=== PATIENT | male | born 1935 | race Caucasian/White ===

== ENCOUNTER 2019-02-25 06:21 | Emergency (ER) | payer MEDICARE, MEDICAID ==
[~2019-02-25] VITALS: Ht 170.2 cm; Wt 71.9 kg
[2019-02-25] MEDS ORDERED: IRON325 PO (06:35)
[2019-02-25] MEDS ORDERED: ASPIR 8181 MG PO (06:35)
[2019-02-25] MEDS ORDERED: PACERONE 200 M200 M1 PO (06:35)
[2019-02-25] MEDS ORDERED: PANTOPRAZOLE SO40 M1 PO (06:36)
[2019-02-25] MEDS ORDERED: MIDODRINE HCL 55 M1 PO (06:36)
[2019-02-25] MEDS ORDERED: FLOMAX0.4 MG PO (06:37)
[2019-02-25] MEDS ORDERED: PAROXETINE HCL20 MG PO (06:37)
[2019-02-25] MEDS ORDERED: VITAMIN D3400 UNIT PO (06:38)
[2019-02-25] MEDS ORDERED: NITROGLYCERIN0.4 MG SUBLING (06:38)
[2019-02-25] MEDS ORDERED: VITAMIN D5000 UNIT PO (06:38)
[2019-02-25] MEDS ORDERED: ONDANSETRON HCL4 M2 PO (06:39)
[2019-02-25] MEDS ORDERED: VENTOLIN HFA 1818 GM INH (06:39)
[2019-02-25 07:41] LABS: URINE BILIRUBIN NEGATIVE (Negative); URINE BLOOD NEGATIVE (Negative); URINE CLARITY CLEAR; URINE COLOR YELLOW; URINE GLUCOSE-RANDOM NEGATIVE (Negative); URINE KETONES NEGATIVE (Negative); URINE LEUKOCYTES-REFLEX NEGATIVE (Negative); URINE NITRITE-REFLEX NEGATIVE (Negative); URINE PROTEIN NEGATIVE (Negative); URINE SPECIFIC GRAVITY 1.015 (1.005-1.030)
[2019-02-25 08:18] LABS: ABSOLUTE BASOPHILS 0.1 thou/uL (0.0-0.2); ABSOLUTE EOSINOPHILS 0.1 thou/uL (0.0-0.7); ABSOLUTE LYMPHOCYTES 0.8 thou/uL (0.8-5.3); ABSOLUTE MONOCYTES 0.3 thou/uL (0.0-1.2); ABSOLUTE NEUTROPHILS 3.5 thou/uL (1.6-8.1); BASOPHILS 1.2 %; EOSINOPHILS 2.7 %; HEMATOCRIT 24.6 % (42.0-52.0); HEMOGLOBIN 8.7 gm/dL (14.0-18.0); LYMPHOCYTES 17.5 %; MCH 28.2 pg (26.0-34.0); MCHC 35.4 g/dL (28.0-37.0); MCV 79.7 fL (80.0-100.0); MONOCYTES 6.2 %; MPV 7.7 fl. (7.2-11.1); NUCLEATED RBCS 0 /100WBC; PLATELET COUNT* 208 thou/uL (150-400); POLYS 72.4 %; RBC 3.08 mil/uL (4.50-6.00); RDW-CV 15.1 % (10.5-14.5); WBC 4.8 thou/uL (4.0-11.0)
[2019-02-25 08:25] LABS: ANION GAP 5 mmol/L (7-16); BUN 13 mg/dL (7-18); CALCIUM 7.7 mg/dL (8.5-10.1); CHLORIDE 94 mmol/L (98-107); CO2 27 mmol/L (21-32); GLUCOSE 97 mg/dL (70-99); POTASSIUM 4.3 mmol/L (3.5-5.1); SODIUM 126 mmol/L (136-145)
[2019-02-25 08:28] LABS: APTT 34.2 Seconds (25.0-31.3); PROTIME 10.7 Seconds (9.20-11.50)
[2019-02-25 08:34] LABS: ALBUMIN 2.6 g/dL (3.4-5.0); ALKALINE PHOSPHATASE 37 U/L (46-116); SGOT 32 U/L (15-37); SGPT 22 U/L (30-65); TOTAL BILIRUBIN 0.4 mg/dL (<0.1-1.0); TOTAL PROTEIN 6.3 g/dL (6.4-8.2); TROPONIN-I LEVEL <0.06 ng/mL (<0.06)
[2019-02-25 10:36] VITALS: BP 146/58
--- NOTE | 2019-02-25 11:19 | EKG ---
[place] [address] ELECTROCARDIOGRAM REPORT Name: SILVESTRE LONDONO [id number] Admission: 02/25/19 Attend Phys: Discharge: 02/25/19 Date of : 35 Report #: [id number] THIS REPORT FOR: //name// [facility] ED Test Date: 2019-02-25 Test Time: 07:55:11 Pat Name: SILVESRTE LONDONO Department: Room: Gender: M Bark Spudder: [facility] : 1935 Requested By: Asif Ernst Order Number: [id number] MD: Jacobo Dunbar Measurements Intervals [place] Rate: 55 P: GA: QRS: -28 QRSD: 123 T: 47 QT: 501 QTc: 480 Interpretive Statements sinus bradycardia with first degree av block Nonspecific intraventricular conduction delay Baseline wander in lead(s) V2 No previous ECG available for comparison Electronically Signed On 02-25-2019 11:19:45 CDT by Jacobo Dunbar [email or web address] <ELECTRONICALLY SIGNED> By: Jacobo Dunbar MD, [facility] 02/25/19 [id number] [id number] Jacobo Dunbar MD, FACC /EPI
== END 2019-02-25 10:37 | disposition home or self-care (01) ==
LOC: M.ERS 06:21
PROVIDERS: Family Medicine
DX: S50.312A Abrasion of left elbow, initial encounter (principal); R07.81 Pleurodynia; J44.9 Chronic obstructive pulmonary disease, unspecified; M47.892 Other spondylosis, cervical region; Z88.8 Allergy status to other drugs, medicaments and biological substances; Z88.0 Allergy status to penicillin; Z88.2 Allergy status to sulfonamides; Z96.652 Presence of left artificial knee joint; W01.0XXA Fall on same level from slipping, tripping and stumbling without subsequent striking against object, initial encounter; Y92.002 Bathroom of unspecified non-institutional (private) residence as the place of occurrence of the external cause; Y93.89 Activity, other specified; Y99.8 Other external cause status

== ENCOUNTER 2019-04-11 21:54 | Inpatient (IN) | payer MEDICARE, MEDICAID ==
[~2019-04-11] VITALS: Ht 170.2 cm; Wt 70.8 kg
--- NOTE | ~2019-04-11 | CON ---
[address] [address] CONSULTATION Name: SILVESTRE LONDONO Room: [address] IN .R.#: [id number] Admission: 04/11/19 Attend Phys: Jose Casey MD Discharge: Date of : 35 Report #: [id number] THIS REPORT FOR: //name// CC: Jose Sorto MD DICTATED BY: Linda Lozada [facility] DATE OF SERVICE: 04/13/2019 Please note at the time of this dictation, the patient was seen and physically examined by myself. REASON FOR CONSULTATION: Difficulty swallowing and abdominal pain. HISTORY OF PRESENT ILLNESS: This is an 84-year-old male who was sent to the hospital for poor oral intake and abnormal labs. Apparently, his sodium was low and he has been anemic. In talking with the patient and the daughter, she states in 09/2018 he fell and broke his hip. He went home for about a week and fell again reopening the area and he was in an apartment in [place], [place] when he did this the second time, then they moved him appeared to [facility] where he has been since. He had an episode of some breathing issues and had effusions that he was admitted to [facility] for a couple of months ago and was discharged both times. He has been in the hospital, he has received blood, but no workup has been done. Everyone is telling them that he is anemic, that is the first time he has ever noted that he has ever been anemic that he can recall and the same with the niece, Jenifer, who was with him. The patient takes no anticoagulant therapy and denies taking any NSAIDs while he has been at the shelter. The patient states his difficulty in swallowing is mainly with solids, which has been occurring for some time and he notices a lot with bread and it has progressively gotten worse. He denies any issues with liquids at this time. The patient states he did have an EGD and colonoscopy many years ago and it was done in [facility]. We will try to obtain labs from 2018 to see if he was anemic at that time as well as any endoscopy reports with path. The patient also states that when he eats, he has some lower abdominal discomfort. He states his bowels move once or twice every day and he does not have any issues with constipation. ALLERGIES: PENICILLIN AND SULFA. MEDICATIONS FROM HOME: Amiodarone, aspirin, iron, midodrine, pantoprazole, Paxil, Flomax, vitamin B, vitamin D, Nitrostat, Zofran, Ventolin, Colace, ferrous gluconate, Lasix, potassium and Lexapro. PAST MEDICAL HISTORY: Hyponatremia; has a [place] [address] CONSULTATION Name: SILVESTRE LONDONO Room: [address] IN ..#: [id number] Admission: 04/11/19 Attend Phys: Jose Casey MD Discharge: Date of : 35 Report #: [id number] with stents; atrial fibrillation, no anticoagulant; and some COPD. PAST SURGICAL HISTORY: Right rotator cuff, left inguinal hernia, vestibular operation, left testicle 20 years ago. FAMILY HISTORY: Significant on his side of the family, sisters with breast and ovarian cancer and a niece with breast cancer. SOCIAL HISTORY: , former smoker. Denies any alcohol or illegal drug use at this time. REVIEW OF SYSTEMS: Twelve-point review of systems is essentially negative except for what is mentioned in the HPI. PHYSICAL EXAMINATION: VITAL SIGNS: Temperature 36.7, pulse 68, respirations 18 and blood pressure 102/49. HEART: Regular rate and rhythm. LUNGS: Diminished, but clear. ABDOMEN: Soft, positive bowel sounds in all 4 quadrants with some slight tenderness in the upper and lower quadrant area. LABORATORY DATA: Sodium 127 and potassium 4.1. Hemoglobin is 7.4, white count is 3.6 and platelets 196. GFR is 80. Iron is 18, TIBC 148, percentage sat is 12. B12 is 544. Abdominal x-ray showed possible ileus. Chest x-ray is showing right small pleural effusion. IMPRESSION: 1. Dysphagia. 2. Abdominal pain. 3. Anemia, no overt bleeding noted. 4. Questionable ileus. 5. Hyponatremia. 6. Family history of breast and ovarian cancer. PLAN: 1. Recheck abdominal x-ray. 2. Await improvement of sodium before EGD with possible dilatation can be performed. 3. We will obtain labs and any endoscopy studies from [facility] from Dr. Luis Carcamo for comparison to see when he became anemic and when his last endoscopy studies were done if available. 4. If above x-ray shows no ileus, allow him to have a full liquid diet. 5. Further recommendations to be made once the above have been noted and he will likely need a colonoscopy as well to further investigate his anemia if no [place] [address] CONSULTATION Name: SILVESTRE LONDONO Room: [address]#: [id number] Admission: 04/11/19 Attend Phys: Jose Casey MD Discharge: Date of : 35 Report #: [id number] Thank you for allowing us to participate in this patient's care. Please do not hesitate to call with any questions in regard to this consult. By: [id number] Hale MD /lemuel
[~2019-04-11 21:54] MED LIST: ASPIR 8181 MG PO; FLOMAX0.4 MG PO; IRON325 PO; MIDODRINE HCL 55 M1 PO; NITROGLYCERIN0.4 MG SUBLING; ONDANSETRON HCL4 M2 PO; PACERONE 200 M200 M1 PO; PANTOPRAZOLE SO40 M1 PO; PAROXETINE HCL20 MG PO; VENTOLIN HFA 1818 GM INH; VITAMIN D3400 UNIT PO; VITAMIN D5000 UNIT PO
[2019-04-11 21:57] VITALS: BP 113/53
[2019-04-11] MEDS ORDERED: COLACE100 MG PO (22:03)
[2019-04-11] MEDS ORDERED: LEXAPRO 10 MG T10 M2 PO (22:04)
[2019-04-11] MEDS ORDERED: POTASSIUM20 PO (22:04)
[2019-04-11] MEDS ORDERED: LASIX 20 MG TAB20 MG PO (22:04)
[2019-04-11] MEDS ORDERED: FERROUS GLUCON324 M3 PO (22:04)
[2019-04-11 22:34] LABS: ABSOLUTE LYMPHOCYTES 0.6 thou/uL (0.8-5.3); ABSOLUTE MONOCYTES 0.3 thou/uL (0.0-1.2); ABSOLUTE NEUTROPHILS 2.8 thou/uL (1.6-8.1); BASOPHILS 0.8 %; HEMATOCRIT 25.5 % (42.0-52.0); HEMOGLOBIN 8.6 gm/dL (14.0-18.0); LYMPHOCYTES 16.4 %; MCH 25.9 pg (26.0-34.0); MCHC 33.6 g/dL (28.0-37.0); MCV 77.1 fL (80.0-100.0); MONOCYTES 9.1 %; MPV 7.5 fl. (7.2-11.1); NUCLEATED RBCS 0 /100WBC; PLATELET COUNT* 255 thou/uL (150-400); POLYS 72.7 %; RBC 3.31 mil/uL (4.50-6.00); RDW-CV 16.9 % (10.5-14.5); WBC 3.8 thou/uL (4.0-11.0)
[2019-04-11 22:36] LABS: APTT 37.6 Seconds (25.0-31.3); PROTIME 10.6 Seconds (9.20-11.50)
[2019-04-11 22:39] LABS: ANION GAP 6 mmol/L (7-16); BUN 14 mg/dL (7-18); CALCIUM 8.1 mg/dL (8.5-10.1); CHLORIDE 90 mmol/L (98-107); CO2 25 mmol/L (21-32); GLUCOSE 104 mg/dL (70-99); POTASSIUM 4.4 mmol/L (3.5-5.1); SODIUM 121 mmol/L (136-145)
[2019-04-11 22:49] LABS: ALBUMIN 2.8 g/dL (3.4-5.0); ALKALINE PHOSPHATASE 55 U/L (46-116); NT-PRO BRAIN NAT PEPTIDE 1004 pg/mL (<300); SGOT 74 U/L (15-37); SGPT 44 U/L (30-65); TOTAL BILIRUBIN 0.5 mg/dL (<0.1-1.0); TOTAL PROTEIN 6.4 g/dL (6.4-8.2); TROPONIN-I LEVEL <0.06 ng/mL (<0.06)
[2019-04-12] VITALS (7 sets, daily range): BP systolic 101–155; BP diastolic 43–67
--- NOTE | 2019-04-12 06:51 | NUR ---
SLEPT WELL TONIGHT. REMINDER TO TURN IN BED. INCONT OF URINE. TELEMETRY SHOWING SB TO SR. NO CHANGE IN ASSESSMENT. HS GOALS OF REST AND SAFETY ACHIEVED. HOURLY ROUNDING OBSERVED.
--- NOTE | 2019-04-12 09:18 | NUR ---
ASSUMED CARE OF PT THIS AM AROUND 0715- ELECTRICAL APPRENTICE IN PLACE ORDERED, TRACING SB/BBB- UPON ASSESSMENT PT NOTED TO BE RESTING IN BED, WATCHING TV- PT A&O X4, [place] CONTINENT VS INCONTINET OF BOWEL AND BLADDER- MAX ASSIST X2 WITH TRANSFERS- DIMINISHED LUNG SOUNDS NOTED, RESP EVEN AND UN-LABORED- VSS, O2 SAT 96% ON RA- ABD SOFT/ROUND/NON-TENDER, BS X4 QUADS- LAST BM REPORTED 04/11/19- NEW 2O GAUGE IV PLACED TO LEFT FA THIS AM, IVF INFUSSING PRESCIBED- FAIR PO INTAKE NOTED THIS AM WITH BREAKFAST- DRESSING TO RIGHT FOREARM IN PLACE WITH NO VISIBLE DRAINGE NOTED- TRACE BLE EDEMA NOTED- PT DENIES ANY C/O PAIN/DISCOMFORT AT THIS TIME- CALL LIGHT AND PERSONAL BELONGINGS WITH IN REACH- HOURLY ROUNDS IN PLACE R/T SAFETY/NEEDS- ALL NEEDS MET AT THIS TIME-WCTM
--- NOTE | 2019-04-12 11:00 | EKG ---
[place] [address] ELECTROCARDIOGRAM REPORT Name: SILVESTRE LONDONO Room: [address] ADM IN M.R.#: [id number] Admission: 04/11/19 Attend Phys: Jose Casey MD Discharge: Date of : 35 Report #: [id number] THIS REPORT FOR: //name// [facility] ED Test Date: 2019-04-11 Test Time: 22:02:33 Pat Name: SILVESTRE LONDONO Department: Room: [facility] Gender: M Intervention Nurse: MD : 1935 Requested By: Asif Ernst Order Number: [id number] MD: Iftikhar Sharpe Measurements Intervals [place] Rate: 55 P: -37 MN: 222 QRS: -39 QRSD: 131 T: 46 QT: 478 QTc: 458 Interpretive Statements Sinus rhythm Borderline prolonged MN interval Nonspecific IVCD with LAD Compared to ECG 02/25/2019 07:55:11 Sinus bradycardia no longer present Electronically Signed On 04-12-2019 11:00:41 CDT by Iftikhar Sharpe [email or web address] <ELECTRONICALLY SIGNED> By: Iftikhar Sharpe MD, [facility] 04/12/19 1100 01 01 Iftikhar Sharpe MD, [facility] /EPI
--- NOTE | 2019-04-12 12:00 | NUR ---
MET WITH PT AND HIS AGUSTIN/ARAVIND. PT LIVES IN LTC AT [facility]. HE USES WALKER AND W/C. ARAVIND REPORTS PT NOT EATING WELL THERE, PT C/O FOOD IS 'COLD'. ARAVIND PLANS TO INVESTIGATE AND HELP PT SET SOME GOALS AT [place]. PLAN IS FOR HIM TO RETURN THERE AT [place]. CALLED AND SPOKE WITH [facility], THEY WILL ACCEPT BACK. MADE HER AWARE PT HAD C/O ABOUT FOOD. WILL FOLLOW
--- NOTE | 2019-04-12 12:57 | 2DMMODE ---
[place] [address] 2 D/M-MODE ECHOCARDIOGRAM Name: SILVESTRE LONDONO Room: [address] IN [facility]#: [id number] Admission: 04/11/19 Attend Phys: Jose Casey, Discharge: Date of : 35 Date of Service: 04/12/19 1256 Report #: [id number] THIS REPORT FOR: //name// APPROVED REPORT Study performed: 04/12/2019 10:23:28 EXAM: Comprehensive 2D, Doppler, and color-flow Echocardiogram Patient Location: In-Patient Room #: [facility] Status: routine BSA: 1.73 HR: 61 bpm BP: 110/56 mmHg Rhythm: NSR Other Information Study Quality: Poor Technically limited study due to off axis imaging, no good parasternal views. Indications Congestive Heart Failure 2D Dimensions IVSd: 11.14 (7-11mm) LVOT Diam: 19.47 (18-24mm) LVDd: 46.91 mm PWd: 9.74 (7-11mm) LVDs: 29.47 (25-40mm) Aortic Root: 34.44 mm Aortic Valve AoV Peak Xu.: 1.44 m/s AO Peak Gr.: 8.28 mmHg LVOT Max P.93 mmHg AO Mean Gr.: 4.64 mmHg LVOT Mean P.45 mmHg LVOT Max V: 0.86 m/s AO V2 VTI: 27.79 cm LVOT Mean V: 0.56 m/s BETSY (VTI): 1.89 cm2 LVOT V1 VTI: 17.65 cm Mitral Valve E/A Ratio: 2.48 MV Decel. Time: 215.48 ms MV E Max Xu.: 0.88 m/s MV PHT: 62.49 ms MVA (PHT): 3.52 cm2 [place] [address] 2 D/M-MODE ECHOCARDIOGRAM Name: SILVESTRE LONDONO Room: [address] IN [facility].#: [id number] Admission: 04/11/19 Attend Phys: Jose Casey, Discharge: Date of : 35 Date of Service: 04/12/19 1256 Report #: [id number] Tricuspid Valve RAP Estimate: 5.00 mmHg TR Peak Gr.: 26.35 mmHg RVSP: 31.00 mmHg PA Pressure: 31.00 mmHg Left Ventricle The left ventricle is normal size. There is normal LV segmental wall motion. There is normal left ventricular wall thickness. Left ventricular systolic function is grossly normal. LVEF is 55-60%. This study is not technically sufficient to allow evaluation of the LV diastolic function. Right Ventricle The right ventricle is normal size. The right ventricular systolic function is normal. Atria The left atrium size is normal. The right atrium size is normal. Aortic Valve Mild aortic valve sclerosis. No aortic regurgitation is present. Mild aortic stenosis. Mitral Valve There is mitral annular calcification. There is no mitral valve regurgitation noted. No evidence of mitral valve stenosis. Tricuspid Valve The tricuspid valve is normal in structure. Trace tricuspid regurgitation. Mild pulmonary hypertension. Pulmonic Valve Pulmonic valve is not well visualized. There is no pulmonic valvular regurgitation. Great Vessels The aortic root is normal in size. IVC is not well visualized. Pericardium There is no pericardial effusion. <Conclusion> The left ventricle [place] [address] 2 D/M-MODE ECHOCARDIOGRAM Name: SILVESTRE LONDONO Room: [address] IN ..#: [id number] Admission: 04/11/19 Attend Phys: Jose Casey, Discharge: Date of : 35 Date of Service: 04/12/19 1256 Report #: [id number] There is normal left ventricular wall thickness. Left ventricular systolic function is grossly normal. LVEF is 55-60%. Mild aortic valve sclerosis. Mild aortic stenosis. Trace tricuspid regurgitation. Mild pulmonary hypertension. <ELECTRONICALLY SIGNED> By: Iftikhar Sharpe MD, [facility] 04/12/19 1256 1256 1256 Iftikhar Sharpe MD, FACC /INF
--- NOTE | 2019-04-12 16:27 | NUR ---
PT CURRENTLY RESTING IN BED- WIRELESS SALES REPRESENTATIVE IN PLACE ORDERED, TRACING SR WITH 1ST DEGREE/BBB- IV TO LEFT AC INTACT AND SL- FAIR PO INTAKE NOTED THIS SHIFT WITH MEALS- PT DAUGHTER REPORTS C/O ABD PAIN WITH DECREASED PO INTAKE- GI CONSULT TO BE INITIATED PER THIS SHIFT- DRESSING REMAINS INTACT TO RUE- ECHO COMPLETED THIS SHIFT, RESULTS NOTED WITH 55-60% EF- F/R IN PLACE OF 1500- DENIES ANY C/O PAIN/DISCOMFORT AT THIS TIME- ALL NEEDS MET AT THIS TIME-WCTM
[2019-04-13] VITALS: BP 133/56
[2019-04-13 04:00] VITALS: BP 125/56
[2019-04-13 05:45] LABS: ABSOLUTE MONOCYTES 0.4 thou/uL (0.0-1.2); ABSOLUTE NEUTROPHILS 2.1 thou/uL (1.6-8.1); BASOPHILS 0.8 %; EOSINOPHILS 1.3 %; HEMATOCRIT 21.4 % (42.0-52.0); HEMOGLOBIN 7.4 gm/dL (14.0-18.0); LYMPHOCYTES 27.6 %; MCH 26.8 pg (26.0-34.0); MCHC 34.5 g/dL (28.0-37.0); MCV 77.7 fL (80.0-100.0); MONOCYTES 11.9 %; MPV 7.9 fl. (7.2-11.1); NUCLEATED RBCS 0 /100WBC; PLATELET COUNT* 196 thou/uL (150-400); POLYS 58.4 %; RBC 2.75 mil/uL (4.50-6.00); RDW-CV 16.9 % (10.5-14.5); WBC 3.6 thou/uL (4.0-11.0)
[2019-04-13 05:56] LABS: ALBUMIN 2.5 g/dL (3.4-5.0); CALCIUM 7.8 mg/dL (8.5-10.1); CREATININE 0.9 mg/dL (0.6-1.3); POTASSIUM 4.1 mmol/L (3.5-5.1); TOTAL BILIRUBIN 0.3 mg/dL (<0.1-1.0); TOTAL PROTEIN 5.7 g/dL (6.4-8.2)
--- NOTE | 2019-04-13 07:25 | NUR ---
PT CARE ASSUMED AT 1930. SAT MAINTAINED IN RA. PT IS CONFUSED THIS AM. CALL LIGHT WITHIN REACH AND BED IN LOW POSITION. INCONTINENT OF B/B. C/O PAIN, MEDICATION GIVEN PER EMAR. HOURLY ROUNDING DONE FOR PT SAFETY.
[2019-04-13 07:43] VITALS: BP 102/49
--- NOTE | 2019-04-13 08:34 | NUR ---
ASSUMED CARE OF PT THIS AM AROUND 714- CASINO FLOOR WALKER IN PLACE ORDERED, TRACING SB WITH 1ST DEGREE-UPON ASSESSMENT PT NOTED TO BE RESTING IN BED- PT A&O X3 WITH INTERMITENT CONF NOTED- INCONTINENT OF BOWEL AND BLADDER- ASSIST X1 WITH TRANSFERS- Q [address] INDICATED- COURSE LUNG SOUNDS NOTED TO RUL, DIMINISHED IN BASES- RESP EVEN AND UN-LABORED- VSS, O2 SAT 93% ON RA- ABD SOFT/FLAT/NON-TENDER, BS X4 HYPOPACTIVE- PT CURRENTLY NPO FOR GI CONSULT THIS AM- IV NOTED TO LEFT FA INTACT, IVF INFUSSING PRESCRIBED-PT DENIES ANY C/O PAIN/DISCOMFORT AT THIS TIME- CALL LIGHT AND PERSONAL BELONGINGS WITH IN REACH- BED ALARM IN PLACE AND WORKING FOR PT SAFETY- HOURLY ROUNDS IN PLACE R/T SAFETY/NEEDS- ALL NEEDS MET AT THIS TIME-WCTM
[2019-04-13 09:22] LABS: URINE BILIRUBIN NEGATIVE (Negative); URINE BLOOD NEGATIVE (Negative); URINE CLARITY CLEAR; URINE COLOR YELLOW; URINE GLUCOSE-RANDOM NEGATIVE (Negative); URINE KETONES NEGATIVE (Negative); URINE LEUKOCYTES-REFLEX 1+ (Negative); URINE NITRITE-REFLEX NEGATIVE (Negative); URINE PROTEIN NEGATIVE (Negative); URINE SPECIFIC GRAVITY 1.015 (1.005-1.030); URINE UROBILINOGEN 0.2 E.U./dl (0.2-1.0)
[2019-04-13 09:31] LABS: BACTERIA-REFLEX >30 Many /HPF (None Seen); SQUAMOUS NONE SEEN /LPF (0-3); URINE RBC 0-2 Rare /HPF (0-2); URINE WBC-REFLEX >25 Many /HPF (0-5)
[2019-04-13 09:32] LABS: CASTS None Seen /LPF (None Seen); CRYSTALS None Seen /LPF (None Seen)
[2019-04-13 11:31] VITALS: BP 94/44
--- NOTE | 2019-04-13 16:23 | NUR ---
PT CURRENTLY RESTING IN BED- GAS DESULFURIZER IN PLACE ORDERED, TRACING SB/SR WITH 1ST DEGREE-PT CURRENTLY REMAINS NPO PENDING GI PLANS- KUB REPEATED ORDERED THIS SHIFT WITH RESULTS NOTED IN [employer]- PT UP WORKING WITH THERPAPIES THIS SHIFT ORDERED, TOLERATING WELL- UA COLLECTED AND SENT TO LAB THIS SHIFT WITH RESULTS NOTED IN MEDITECH- IV IRON ORDERED THIS SHIFT, WITH 1ST DOSE GIVEN THIS SHIFT- PT DENIES ANY C/O PAIN/DISCOMFORT AT THIS TIME- CALL LIGHT AND PERSONAL BELONGINGS WITH IN REACH- ALL NEEDS MET AT THIS TIME-WCTM
[2019-04-13 20:00] VITALS: BP 130/57
[2019-04-14] VITALS: BP 97/58
[2019-04-14 02:06] LABS: GLYCOHEMOGLOBIN (HGB A1C) 5.5 % (4.8-5.6)
[2019-04-14 04:00] VITALS: BP 118/47
[2019-04-14 04:41] LABS: CALCIUM 7.9 mg/dL (8.5-10.1); CREATININE 0.8 mg/dL (0.6-1.3); POTASSIUM 4.5 mmol/L (3.5-5.1)
--- NOTE | 2019-04-14 05:49 | NUR ---
PT CARE ASSUMED AT 1930. SAT MAINTAINED IN RA. PT IS CONFUSED. CALL LIGHT WITHIN REACH AND BED IN LOW POSITION. INCONTINENT OF B/B. HOURLY ROUNDING DONE FOR PT SAFETY. DENIES PAIN AND SOB.
[2019-04-14 08:00] VITALS: BP 121/52
[2019-04-14 12:25] VITALS: BP 125/50
--- NOTE | 2019-04-14 15:32 | NUR ---
UPDATED CLINICAL FAXED TO [facility]
[2019-04-14 15:59] VITALS: BP 110/49
[2019-04-14 19:50] VITALS: BP 127/55
[2019-04-15] VITALS: BP 112/49
[2019-04-15 04:00] VITALS: BP 102/47
[2019-04-15 04:29] LABS: ABSOLUTE LYMPHOCYTES 0.7 thou/uL (0.8-5.3); ABSOLUTE MONOCYTES 0.3 thou/uL (0.0-1.2); ABSOLUTE NEUTROPHILS 7.2 thou/uL (1.6-8.1); BASOPHILS 0.4 %; EOSINOPHILS 0.1 %; HEMATOCRIT 20.1 % (42.0-52.0); LYMPHOCYTES 8.2 %; MCHC 33.4 g/dL (28.0-37.0); MCV 77.7 fL (80.0-100.0); MPV 7.3 fl. (7.2-11.1); NUCLEATED RBCS 0 /100WBC; PLATELET COUNT* 218 thou/uL (150-400); POLYS 87.3 %; RBC 2.59 mil/uL (4.50-6.00); RDW-CV 17.4 % (10.5-14.5); WBC 8.3 thou/uL (4.0-11.0)
[2019-04-15 04:42] LABS: CALCIUM 7.5 mg/dL (8.5-10.1); CREATININE 0.9 mg/dL (0.6-1.3); MAGNESIUM 1.8 mg/dL (1.8-2.4); POTASSIUM 4.3 mmol/L (3.5-5.1)
[2019-04-15 05:57] LABS: HEMOGLOBIN 6.7 gm/dL (14.0-18.0)
--- NOTE | 2019-04-15 07:41 | NUR ---
PT CARE ASSUMED AT 1930. SAT MAINTAINED IN RA. PT IS CONFUSED. INCONTINENT OF BOWEL AND BLADDER. CALL LIGHT WITHIN REACH AND BED IN LOW POSITION. DENIES PAIN AND SOB. HOURLY ROUNDING DONE FOR PT SAFETY.
[2019-04-15 08:00] VITALS: BP 120/50
--- NOTE | 2019-04-15 11:03 | NUR ---
5857 ASSUMED CARE OF PATIENT. SEE DOCUMENTED ASSESSMENT. PT INCONTINENT OF MSUHY LIGHT BROWN STOOL. NPO FOR GI TESTING
--- NOTE | 2019-04-15 12:08 | NUR ---
1115 TO SURGERY PER BED FOR EGD. DPOA IS HERE BUT PATIENT ABLE TO SIGN HIS OWN CONSENT
[2019-04-15 13:55] VITALS: BP 103/44
--- NOTE | 2019-04-15 14:14 | NUR ---
1355 RECEIVED BACK FROM PACU. STARTED ON 1LPM NASAL CANNULA DUE TO SAT OF 89/5 ON ROOM AIR. SAT ON 2L WAS 94%.DPOA PRESENT AND REPORT RECEIVED.
--- NOTE | 2019-04-15 15:51 | NUR ---
CALL TO [facility] TO UPDATE, THEY WILL ACCEPT PT BACK AT [place]. [facility] [phone] FAX [phone]
--- NOTE | 2019-04-15 16:29 | NUR ---
TITRATED TO ROOM AIR. O2 SAT ON ROOM AIR IS 94%
[2019-04-15 16:54] VITALS: BP 115/50
--- NOTE | 2019-04-15 17:12 | NUR ---
PATIENT MAKING SOME PROGRESS TOWARDS GOALS. SODIUM CORRECTING. RECEIVING IV IRON. EGD COMPLETED. DIET RESUMED. HAS HAD SEVERAL STOOLS TODAY WITH NO EVIDENCE OF BLEEDING. SKIN CARE ACCOMPLISHED. DPOA PRESENT MOST OF DAY. CONTINUING TO PURSUE CAUSE OF ANEMIA
[2019-04-15 20:00] VITALS: BP 103/47
[2019-04-16] VITALS: BP 108/51
[2019-04-16 04:00] VITALS: BP 106/52
[2019-04-16 04:50] LABS: ABSOLUTE EOSINOPHILS 0.1 thou/uL (0.0-0.7); ABSOLUTE LYMPHOCYTES 0.8 thou/uL (0.8-5.3); ABSOLUTE MONOCYTES 0.3 thou/uL (0.0-1.2); ABSOLUTE NEUTROPHILS 4.2 thou/uL (1.6-8.1); BASOPHILS 0.7 %; EOSINOPHILS 1.7 %; MCH 26.3 pg (26.0-34.0); MCHC 33.3 g/dL (28.0-37.0); MONOCYTES 6.3 %; MPV 7.5 fl. (7.2-11.1); NUCLEATED RBCS 0 /100WBC; PLATELET COUNT* 200 thou/uL (150-400); POLYS 77.3 %; RBC 2.45 mil/uL (4.50-6.00); RDW-CV 17.5 % (10.5-14.5); WBC 5.4 thou/uL (4.0-11.0)
[2019-04-16 05:03] LABS: CALCIUM 7.8 mg/dL (8.5-10.1); CREATININE 0.8 mg/dL (0.6-1.3); POTASSIUM 4.4 mmol/L (3.5-5.1)
[2019-04-16 05:08] LABS: HEMATOCRIT 19.4 % (42.0-52.0); HEMOGLOBIN 6.5 gm/dL (14.0-18.0)
[2019-04-16 08:03] VITALS: BP 118/51
--- NOTE | 2019-04-16 11:08 | NUR ---
VSS, ASSUMED CARE IN THE AM, ASSESSMENT PERFORMED AND CHARTED, FALL PRECAUTIONS INPLACE AND CALL LIGHT IN REACH, PT IS A&O4. [place] AND IS TRACING SR ON THE MONITOR, PT ON RA, PT WILL BE RECIVING ONE UNIT OF BLOOD, PT IS UP WITH ONE AND HIS GOAL IS TO SIT UP IN CHAIR/ WALK INN ROOM, HE DENIES ANY PAIN AT THIS TIME, WILL FOLLOW WITH PLAN OF CARE.
[2019-04-16 11:41] VITALS: BP 108/51; BP 109/51; BP 118/54
[2019-04-16 16:15] VITALS: BP 111/47
[2019-04-16 20:00] VITALS: BP 122/59
[2019-04-17] VITALS: BP 125/54
[2019-04-17 04:00] VITALS: BP 136/65
--- NOTE | 2019-04-17 07:06 | NUR ---
ASSUMED PT CARE AT 1930. ASSESSMENT COMPLETED CHARTED. ABLE TO MAKE NEEDS KNOWN. [place], HEARING AID OUT OF BATTERIES. [id number] COMPLETED CHARTED. NO C/O PAIN OR DISCOMFORT. PT RESTING IN BED AT THIS TIME. WILL CONTINUE TO MONITOR.
[2019-04-17 07:55] VITALS: BP 131/61
[2019-04-17 12:00] VITALS: BP 117/58
[2019-04-17 16:00] VITALS: BP 126/60
--- NOTE | 2019-04-17 17:40 | NUR ---
PT REMAINED ALERT AND ORIENTED. PT HARD OF HEARING. SKIN TEAR DRESSING CHANGED AND PICTURES TAKEN. NEW IV LT FA WITH NS AT 100. PT INCONTINENT. FALL RISK PRECAUTIONS IN PLACE. HOURLY ROUNDING COMPLETED. WILL CONTINUE TO MONITOR.
[2019-04-17 20:30] VITALS: BP 134/61
[2019-04-18] VITALS: BP 127/62
[2019-04-18 04:00] VITALS: BP 121/86
--- NOTE | 2019-04-18 05:33 | NUR ---
PT ALERT AND ORIENTED. VSS ON RA. ASSESSMENT DOCUMENTED. HARD OF HEARING. MEDS GIVEN PER EMAR. PT HAD AN EPISODE OF EMESIS EARLY THIS AM. ZOFRAN GIVEN. FALL PRECAUTION IN PLACE. PT HAD BM TWICE THIS SHIFT. Q2 TURN. 1500 CC DAILY FLUID RESTRICTION OBSERVED. LFA WITH NS @ 100ML/HR STARTED AT MIDNIGHT. CALL LIGHT WITHIN REACH. HOURLY ROUNDINGS MADE. WILL CONTINUE TO MONITOR.
[2019-04-18 07:46] VITALS: BP 137/61
--- NOTE | 2019-04-18 16:01 | NUR ---
Following for d/c planning needs. Reviewed chart and spoke with physician. Physician said that pt may be ready for d/c back to [facility] on Thursday. Updated patient assessment coordinator at facility. Will remain available to assist as needed.
--- NOTE | 2019-04-18 16:55 | NUR ---
Nutrition: pt screen for LOS. Admit w/ dehydration, ileus. Wt now back near February wt of 158 lb. 100% intake of dinner last pm recorded, pt did have episode of emesis this am per notes. Albumin low. Meds reviewed. Physician noted likely discharge tomorrow. Assess at low-mild nutrition risk at this time.
[2019-04-18 20:00] VITALS: BP 104/41
[2019-04-19] VITALS: BP 114/61
[2019-04-19 04:00] VITALS: BP 126/54
[2019-04-19 04:29] LABS: ABSOLUTE EOSINOPHILS 0.3 thou/uL (0.0-0.7); ABSOLUTE LYMPHOCYTES 0.7 thou/uL (0.8-5.3); ABSOLUTE MONOCYTES 0.5 thou/uL (0.0-1.2); ABSOLUTE NEUTROPHILS 4.2 thou/uL (1.6-8.1); BASOPHILS 0.6 %; EOSINOPHILS 5.5 %; HEMATOCRIT 22.2 % (42.0-52.0); HEMOGLOBIN 7.4 gm/dL (14.0-18.0); LYMPHOCYTES 12.5 %; MCH 26.9 pg (26.0-34.0); MCHC 33.4 g/dL (28.0-37.0); MCV 80.6 fL (80.0-100.0); MONOCYTES 8.2 %; MPV 7.6 fl. (7.2-11.1); NUCLEATED RBCS 0 /100WBC; PLATELET COUNT* 224 thou/uL (150-400); POLYS 73.2 %; RBC 2.76 mil/uL (4.50-6.00); RDW-CV 17.5 % (10.5-14.5); WBC 5.8 thou/uL (4.0-11.0)
[2019-04-19 05:01] LABS: CALCIUM 7.5 mg/dL (8.5-10.1); CREATININE 0.9 mg/dL (0.6-1.3); MAGNESIUM 1.9 mg/dL (1.8-2.4); POTASSIUM 4.2 mmol/L (3.5-5.1)
[2019-04-19 08:00] VITALS: BP 123/75
--- NOTE | 2019-04-19 08:05 | NUR ---
ASSUMED PT CARE AT 1930. ASSESSMENT COMPLETED CHARTED. ABLE TO MAKE NEEDS KNOWN. PT RESTING IN BED MOST OF THE NIGHT. [id number] COMPLETED CHARTED. NO C/O PAIN OR DISCOMFORT. TORRES MARTINEZ. HAD A COUPLE INSTANCES OF INCONTINENCE DURING THE NIGHT. VSS. WILL CONTINUE TO MONITOR.
[2019-04-19] MEDS ORDERED: IPRAT-ALBUT 0.5-3 ML INH (12:04)
[2019-04-19] MEDS ORDERED: REMERON15 MG PO (12:04)
[2019-04-19] MEDS ORDERED: MELATONIN1 MG PO (12:05)
[2019-04-19] MEDS ORDERED: DOK PLUS TABLE1 EACH PO (12:05)
[2019-04-19] MEDS ORDERED: THERA M PLUS T1 EAC2 PO (12:05)
[2019-04-19] MEDS ORDERED: SODIUM CHLORIDE1 G2 PO (12:05)
[2019-04-19 12:57] VITALS: BP 123/75
--- NOTE | 2019-04-19 14:59 | NUR ---
Following for d/c planning needs. Received order from physician to arrange d/c back to [facility] with skilled. Spoke with sports coordinator at facility and faxed orders. Chart copy completed. Spoke with pt and pt's niece. Pt is in agreement with plans to return to [facility]. [facility] RN aware of d/c plans. No other needs identified.
--- NOTE | 2019-04-19 15:45 | NUR ---
ASSUMED PT CARE AT 0700, A&O X4, [place], UP WITH ASSIST X1, VSS, RA, SAAS ARCHITECT TRACING SINUS RHYTHM. REMAINS ON CONTACT ISOLATION FOR ESBL IN URINE. PT DISCHARGED BACK TO SKILLED FACILITY. ALL DISCHARGE PAPERWORK SENT TO FACILITY, PT DISCHARGED FROM UNIT AT APPROX 1535 VIA WHEELCHAIR VAN. IV AND SAAS ARCHITECT REMOVED, HOURLY ROUNDING COMPLETE.
== END 2019-04-19 15:35 | DRG 811 ==
LOC: M.ERS 21:54 → M.2W 23:20 → M.TBA-ER 23:20 → M.2W 04-12 00:33
PROVIDERS: Family Medicine; ADMIT Internal Medicine
PROC: 0DJ08ZZ Inspection of Upper Intestinal Tract, Via Natural or Artificial Opening Endoscopic (ICD-10-PCS; principal; 2019-04-15)
PROC: 30233N1 Transfusion of Nonautologous Red Blood Cells into Peripheral Vein, Percutaneous Approach (ICD-10-PCS; 2019-04-16)
DX: D62 Acute posthemorrhagic anemia (principal); E43 Unspecified severe protein-calorie malnutrition; E87.1 Hypo-osmolality and hyponatremia; K56.7 Ileus, unspecified; D68.59 Other primary thrombophilia; E86.0 Dehydration; I25.10 Atherosclerotic heart disease of native coronary artery without angina pectoris; I48.91 Unspecified atrial fibrillation; R13.10 Dysphagia, unspecified; D63.8 Anemia in other chronic diseases classified elsewhere; R91.1 Solitary pulmonary nodule; J44.9 Chronic obstructive pulmonary disease, unspecified; M47.892 Other spondylosis, cervical region; Z88.0 Allergy status to penicillin; Z88.2 Allergy status to sulfonamides; Z88.8 Allergy status to other drugs, medicaments and biological substances; Z87.891 Personal history of nicotine dependence; Z80.3 Family history of malignant neoplasm of breast; Z80.41 Family history of malignant neoplasm of ovary; Z95.5 Presence of coronary angioplasty implant and graft; Z79.82 Long term (current) use of aspirin; Z79.899 Other long term (current) drug therapy; Z68.24 Body mass index [BMI] 24.0-24.9, adult; D50.9 Iron deficiency anemia, unspecified